=== PATIENT | female | born 1950 | race Caucasian/White ===

== ENCOUNTER → 2017-07-20 | Day surgery (SDC) | payer MEDICARE ==
[~2017-07-20] VITALS: Ht 157.5 cm; Wt 60.0 kg
[~2017-07-20] MED LIST: AMBI5TAB PO; BUPIVACAINE HCL PF 0.5% 30 ML VIAL ONE; CEPH-460 PO; CHLORHEXIDINE GLUCONATE 2 % 1 PACK (2 CLOTHS) TOPICAL PRN; CLAR10CA3 PO; FLUT1SPR5 EACH NARE; HYDR-3288 PO; INSULIN HUMAN REGULAR 1,000 UNITS/10 ML VIAL SQ PRN; LACTATED RINGER'S 1000 ML IV PRN; LIDOCAINE HCL 2% 50 ML VIAL ONE; METOPROLOL TARTRATE 25 MG TAB PO PRN; MIDAZOLAM HCL 2 MG/2 ML VIAL ONE; NEOMYCIN/POLYMYXIN 1 ML G.U. IRRIGANT ONE; POVIDONE IODINE 5% (ANTISEPSIS KIT) 4 APPLICATIONS EACH NARE PRN; SODIUM CHLORID 0.9% 500 ML IV PRN; ceFAZolin 1,000 MG/NS 100 ML IV SCH
[2017-07-20 09:45] VITALS: PULSE 80
--- NOTE | 2017-07-20 10:59 | MP ---
cc: GLYNN ALBERTS III, M.D. DATE OF SURGERY: 07/20/2017 PREOPERATIVE DIAGNOSIS Left hand tumor. PROCEDURE Left hand mass excision, deep. SURGEON Glynn Alberst III, MD PROCEDURE The patient was brought to the operating room and placed supine on the operating table. After the correct site and side of surgery were verified by members of each team in the room multiple times including the patient, myself and after adequate preoperative markings, preoperative written consent were verified by everyone and after adequate preoperative time-out was performed to everyone's satisfaction and after adequate general anesthesia had been achieved, the left hand was prepped and draped in the traditional sterile surgical fashion. A 50/50 mixture of 2% plain lidocaine, 0.5% plain Marcaine was infiltrated in the skin and subcutaneous tissue at base of palm and into the carpal tunnel. The limb was elevated for a minute and pressure was held on the brachial artery to exsanguinate it and then a highly placed well-padded axillary tourniquet was inflated to 200 mmHg for a total of 23 minutes. The hand was placed palm up and protected left hand and incisions were then made between the third, fourth metacarpals on the palm staying on the skin creases. No creases were crossed at 90 degree angle. Blunt dissection was performed. Bipolar electrocautery was used as needed. The palmar fascia was resected in the area of the exposed wound. The neurovascular bundles were identified between the third and fourth fingers and between the third and fourth metacarpals and gently retracted up and protected the entire time. They were retracted in opposite directions with smooth retractors. The mass immediately became visible and was then bluntly and very delicately and meticulously dissected out from surrounding tissue and it came out in a whole. There was no fragmenting or breaking off of parts. The capsule was maintained and it was passed off the field as specimen. It was found to be 6 x 4 cm in greatest dimensions. The wound and the cavity was examined and there was found to be no obvious vital structure injury or compromise or involvement. There are no other anatomic abnormalities aside from the large cavity. The axillary tourniquet was then released and the hand and all fingers became immediately soft, pink, warm. There was no brisk bleeding. Hemostasis was present. Thorough irrigation with a liters worth of saline was performed and the skin edges were reapproximated using running and interrupted 4-0 Nylon sutures. A one-quarter inch Molly drain split in half longitudinally was placed within the deepest part of the wound and brought out distally. Hemostasis was still present. The hand and arm were thoroughly cleansed and dried. Betadine and Adaptic dressing was applied on top of the wound followed by bulky soft dressing, lightly compressive circumferential dressing was made in the usual fashion and a volar immobilizing protective splint for 2 days will be placed. The patient was awakened from anesthesia and transported to the Post Anesthesia Care Unit awake and in stable condition at the end of the case. Sponge, needle and instrument counts were correct at the end of the case as reported by nurses in the room. MD PB Blackwell III/MANUEL /10:02 AM /10:21 AM
[2017-07-20 11:30] VITALS: BP 135/75; PULSE 61; RESP 16; TEMP 97.7; O2SAT 100
--- NOTE | 2017-07-20 18:24 | EKG ---
Date Performed: 07/20/2017 Time Performed: 07:14:53 PTAGE: 66 years EKG: Sinus rhythm NORMAL ECG NO PREVIOUS TRACING DOCTOR: Tiffany Wilhelm Interpretating Date/Time 07/20/2017 18:22:59
== END | disposition home or self-care (01) ==
LOC: PHSDC 06:15
PROVIDERS: ATTEND Orthopaedic Surgery Hand Surgery
DX: R22.32 Localized swelling, mass and lump, left upper limb (principal); Z01.810 Encounter for preprocedural cardiovascular examination
CPT/HCPCS: 01810; 26113; 88304; 93005; J0690; J2250; J3010; J7120; 88305